=== PATIENT | male | born 1980 | race Caucasian/White ===

== ENCOUNTER 2017-04-23 23:52 | Emergency (ER) | payer BC ==
[~2017-04-23] VITALS: Ht 188 cm; Wt 131.5 kg
[~2017-04-23 23:52] MED LIST: [UNRECOGNIZED DRUG - CODE] PO
[2017-04-24 00:04] VITALS: BP 128/78
--- NOTE | 2017-04-24 00:13 | NUR ---
PT TAKEN TO BED 3
--- NOTE | 2017-04-24 00:18 | NUR ---
Dr. Hernandes evaluating patient at bedside.
--- NOTE | 2017-04-24 00:26 | NUR ---
X-Ray at bedside.
--- NOTE | 2017-04-24 00:29 | NUR ---
PATIENT PRESENTS TO ED WITH COUGH, SORE THROAT X6 DAYS TOOK CHLORASEPTIC SPRAY AT HOME HX OF HYPERTENSION PT DENIES N/V/D; SKIN IS PINK/WARM/DRY; AAOX4 WITH EVEN AND STEADY GAIT; LUNGS CLEAR BL; HR EVEN AND REGULAR; PT DENIES ANY FEVER, CP OR SOB AT THIS TIME; PATIENT STATES PAIN OF 7/10 AT THIS TIME; VSS; PATIENT POSITIONED FOR COMFORT; HOB ELEVATED; BEDRAILS UP X2; BED DOWN. ER MD MADE AWARE OF PT STATUS.
[2017-04-24] MEDS ORDERED: ACETAMIN/CODEINE 120/12MG-5ML 5 ML UDC PO ONE (00:30)
[2017-04-24 01:14] VITALS: BP 128/78
--- NOTE | 2017-04-24 01:14 | NUR ---
Patient discharged with v/s stable. Written and verbal after care instructions given and explained. Patient verbalized understanding. Ambulatory with steady gait. All questions addressed prior to discharge. Advised to follow up with PMD.
== END 2017-04-24 01:14 | disposition home or self-care (01) ==
LOC: MED 23:52
DX: J20.9 Acute bronchitis, unspecified (principal); I10 Essential (primary) hypertension
CPT/HCPCS: 71010; 99283; Q0092

== ENCOUNTER 2017-05-05 04:05 | Emergency (ER) | payer BC ==
[~2017-05-05] VITALS: Ht 188 cm; Wt 136.1 kg
[2017-05-05 04:17] VITALS: BP 136/80
--- NOTE | 2017-05-05 04:44 | NUR ---
PT TAKEN TO XRAY
--- NOTE | 2017-05-05 04:49 | NUR ---
PT TAKEN TO BED 8
--- NOTE | 2017-05-05 04:57 | NUR ---
Dr. Hernandes evaluating patient at bedside.
--- NOTE | 2017-05-05 05:00 | NUR ---
PATIENT PRESENTS TO ED WITH COUGH. PT DENIES N/V/D; SKIN IS PINK/WARM/DRY; AAOX4 WITH EVEN AND STEADY GAIT; LUNGS CLEAR BL; HR EVEN AND REGULAR; PT DENIES ANY FEVER, CP OR SOB AT THIS TIME; PATIENT STATES PAIN OF 6/10 AT THIS TIME; VSS; PATIENT POSITIONED FOR COMFORT; HOB ELEVATED; BEDRAILS UP X2; BED DOWN. ER MD MADE AWARE OF PT STATUS.
[2017-05-05] MEDS ORDERED: predniSONE 20 MG TAB PO ONE (05:05)
[2017-05-05 05:21] VITALS: BP 136/80
== END 2017-05-05 05:22 | disposition home or self-care (01) ==
LOC: MED 04:05
DX: J20.9 Acute bronchitis, unspecified (principal); I10 Essential (primary) hypertension
CPT/HCPCS: 71010; 99283; J7512

== ENCOUNTER 2017-11-24 18:28 | Emergency (ER) | payer BC ==
[~2017-11-24] VITALS: Ht 188 cm; Wt 131.5 kg
[2017-11-24 19:10] VITALS: BP 150/95
--- NOTE | 2017-11-24 19:15 | NUR ---
TO LOBBY, AMB, V/S STABLE, A/W FOR BED
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
--- NOTE | 2017-11-24 22:32 | NUR ---
ALTAF SILVA AT BEDSIDE EVALUATING PT.
[2017-11-24] MEDS ORDERED: SILVER SULFADIAZINE 1% 50 GM JAR TP ONE (22:40)
[2017-11-24 23:00] VITALS: BP 143/83
== END 2017-11-24 23:00 | disposition home or self-care (01) ==
LOC: MED 18:28
DX: T23.001A Burn of unspecified degree of right hand, unspecified site, initial encounter (principal); I10 Essential (primary) hypertension; Z79.899 Other long term (current) drug therapy; X10.2XXA Contact with fats and cooking oils, initial encounter; Y93.89 Activity, other specified; Y92.89 Other specified places as the place of occurrence of the external cause; Y99.8 Other external cause status
CPT/HCPCS: 99282

== ENCOUNTER 2017-11-29 22:38 | Emergency (ER) | payer BC ==
[~2017-11-29] VITALS: Ht 188 cm; Wt 131.5 kg
[2017-11-29 22:41] VITALS: BP 150/100
--- NOTE | 2017-11-29 22:45 | NUR ---
TO LOBBY, AIRAM GONZALEZ,A/W BED, SHAR NOTED
[2017-11-29 22:46] VITALS: BP 150/100
--- NOTE | 2017-11-30 01:11 | NUR ---
PATIENT LEFT WITHOUT BEING SEEN BY DR. GUY. NO FURTHER CARE PROVIDED FOR PATIENT.
== END 2017-11-30 01:11 | disposition left against medical advice (07) ==
LOC: MED 22:38
DX: R50.9 Fever, unspecified (principal); R05 Cough; Z53.21 Procedure and treatment not carried out due to patient leaving prior to being seen by health care provider